=== PATIENT | male | born 1955 | race African-American/Black ===

== ENCOUNTER 2016-09-12 10:11 | Day surgery (SDC) | payer OTHER ==
[~2016-09-12] VITALS: Ht 175.3 cm; Wt 72.6 kg
[~2016-09-12 10:11] MED LIST: 0.9% Sodium Chloride 1,000 ML IV SCH; AMLO10TA3 PO; HYDR59LO2 TP; LOSA100T29 PO; Sodium Chloride LOK Flush 10 mL Syringe IV PRN; fentaNYL-PF 50 mCg/mL 2 mL Inj IVPUSH PRN
[2016-09-12 11:06] VITALS: BP 129/91; PULSE 89; RESP 12; O2SAT 99
[2016-09-12] MEDS ORDERED: [UNRECOGNIZED DRUG - CODE] PO (11:08)
[2016-09-12 11:44] VITALS: BP 128/81; PULSE 78; RESP 16; O2SAT 97
[2016-09-12 11:54] VITALS: BP 131/78; PULSE 89; RESP 16; O2SAT 97
[2016-09-12 12:01] VITALS: BP 132/85; PULSE 87; RESP 16; O2SAT 97
--- NOTE | 2016-09-12 20:12 | ENDO ---
[address] [address] ENDOSCOPY PROCEDURE PATIENT: AREN DAVENPORT : 1955 MR#: [id number] ADMIT: 09/12/2016 JOB ID: [id number] PROCEDURE: Colonoscopy. INDICATIONS: Screening. The patient's ASA classification is 2, Mallampati score is 2. MEDICATIONS: 1. Versed 5 mg. 2. Fentanyl 125 mcg. INSTRUMENT USED: PCF H 180 AL PREPARATION QUALITY: Good. PROCEDURE DETAILS: After informed consent was obtained, the patient was brought to the GI suite, where he was placed on oxygen via nasal cannula and monitored with continuous pulse oximeter, telemetry, and blood pressure monitoring. A time-out was performed and then he was placed in a left lateral decubitus position and medications were administered for sedation. Digital rectal exam was performed and was unremarkable. The colonoscope was then inserted into the rectum and advanced under direct visualization to the cecum which was identified by the presence of the ileocecal valve and appendiceal orifice. Once the cecum was reached, the colonoscope was withdrawn back into the rectum and mucosa and lumen were examined. In the rectum, retroflexion was performed. Following retroflexion, remaining air in the rectum was suctioned, and the procedure was completed. FINDINGS: 1. In the distal cecum, there was an approximately 8 mm sessile polyp that was removed with a hot snare. Following removal with a hot snare, there was mild bleeding at the site. This was treated with a combination of cautery from the snare tip and placement of one hemoclip. 2. Scattered diverticula were seen throughout the entire colon. IMPRESSION: 1. Cecal polyp. 2. Richards diverticulosis. RECOMMENDATIONS: 1. Avoid NSAIDs and anticoagulants for 72 hours. 2. Repeat colonoscopy in five years. COMPLICATIONS: None. ESTIMATED BLOOD LOSS: Less than 5 mL.
--- NOTE | 2016-09-13 16:53 | PATH ---
SURGICAL PATHOLOGY Attending Physician:Simon Alves CASE STATUS: Signed Out PATIENT NAME: AREN DAVENPORT PID: [id number] : 1955 DATE COLLECTED:09/12/2016 20:56 SPECIMEN: Colon, Polyp CLINICAL HISTORY: 1). CECAL POLYP X1 FINAL DIAGNOSIS: 1.CECAL POLYP, BIOPSY: TUBULAR ADENOMA. ICD10 D12.0 GROSS DESCRIPTION: The specimen is received in one formalin filled container labeled with the patient's name, sublabeled "cecal polyp x1" and consists of 3 portions of tissue which aggregate to 0.3 x 0.3 x 0.3 CM. The specimen is entirely submitted in one cassette. 09/12/2016DC MICRO DESCRIPTION: See diagnosis. ICD-9 CODES: CPT CODES: 1: 40465 Electronically Signed Out Justino Mccarthy MD, Ph.D. [facility] [address], [place] [address] Technical component performed at [facility], [facility] [address], [place], [address]
== END 2016-09-12 23:59 | disposition home or self-care (01) ==
LOC: END 10:11
PROVIDERS: ATTEND Internal Medicine Gastroenterology
DX: Z12.11 Encounter for screening for malignant neoplasm of colon (principal); D12.0 Benign neoplasm of cecum; K57.30 Diverticulosis of large intestine without perforation or abscess without bleeding; I10 Essential (primary) hypertension; R59.9 Enlarged lymph nodes, unspecified; D64.9 Anemia, unspecified
CPT/HCPCS: 45385; G0500; J2250; J3010; J7030